=== PATIENT | female | born 1985 | race Caucasian/White ===

== ENCOUNTER 2018-10-11 02:09 | Inpatient (IN) | payer OTHER ==
[2018-10-11 02:52] LABS: APPEARANCE,URINE CLEAR; BILIRUBIN,URINE NEGATIVE (NEGATIVE); COLOR,URINE COLORLESS; GLUCOSE, URINE NEGATIVE (NEGATIVE); KETONES,URINE NEGATIVE (NEGATIVE); LEUKOCYTE ESTERASE,URINE NEGATIVE (NEGATIVE); NITRITE,URINE NEGATIVE (NEGATIVE); PROTEIN,URINE NEGATIVE (NEGATIVE); URINE SPECIFIC GRAVITY 1.002; UROBILINOGEN,URINE NEGATIVE mg/dL (<2.0)
[2018-10-11 03:09] LABS: URINE AMPHETAMINES SCREEN NEGATIVE; URINE BARBITURATES SCREEN NEGATIVE; URINE BENZODIAZEPINES SCREEN NEGATIVE; URINE COCAINE SCREEN NEGATIVE; URINE MARIJUANA (THC) SCREEN NEGATIVE; URINE METHADONE SCREEN NEGATIVE; URINE PHENCYCLIDINE SCREEN NEGATIVE
[2018-10-11] MEDS ORDERED: RINGERS SOLUTION,LACTATED 1,000 ML IV ONE (05:37)
[2018-10-11] MEDS ORDERED: RINGERS SOLUTION,LACTATED 1,000 ML IV PRN (05:37)
--- NOTE | 2018-10-11 06:34 | Admission Physical ---
Datetime Report Generated by CPN: 10/11/2018 06:34 CURRENT ADMISSION Chief Complaint: Uterine Contractions Indication for Induction: Not Applicable Admit Impression : Term, Intrauterine ; Active Labor Admit Plan: Admit to Unit; Initiate Labor Protocol ALLERGIES Medication Allergies: No Latex: No Latex Allergies OBSTETRICAL HISTORY EDC: 10/08/2018 00:00 : 5 Para: 4 Term: 4 : 0 SAB: 0 IAB: 0 Ectopic: 0 Livin Cesareans: 0 VBACs: 0 Multiple Births: 0 Gestational Diabetes: No Rh Sensitization: No Incompetent Cervix: No BIANKA: No Infertility: No ART Treatment: No Uterine Anomaly: No IUGR: No Hx Previous C/S: No Macrosomia: No Hx Loss/Stillborn: No PIH: No Hx : No Placenta Previa/Abruption: No Depression/PP Depression: No PTL/PROM: No Post Hemorrhage: No Current Procedures: Ultrasound; NST Obstetrical History Comments: G1: 2009; boy, 7# 2 oz G2: 2011; girl, _6 # G3: 2012; boy, 8# 1 oz G4: 2016; boy, 7# 11 oz G5: current SEE RECORDS Alcohol: No Marijuana : No Cocaine: No Other Illicit Drugs: No Cigarettes: Never Smoker. 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 Surgery: No Heart Disease: No Hosp/Surgery: Yes Autoimmune Disorder: No Anesthetic Complications: No Kidney Disease: No Abnormal Pap Smear: No Neuro/Epilepsy: No Psychiatric Disorders: No Other Medical Diseases: No Hepatitis/Liver Disease: No Significant Family History: No Varicosities/Phlebitis: No Trauma/Violence : No Thyroid Dysfunction: No INFECTIOUS HISTORY Gonorrhea: No Genital Herpes: No Chlamydia: No Tuberculosis: No Syphilis: No Hepatitis: No HIV/AIDS Exposure: No Rash or Viral Illness: No HPV: No PHYSICAL EXAM General: Normal HEENT: Normal Neurologic: Normal Thyroid: Deferred Heart: Normal Lungs: Normal Breast: Deferred Back: Normal Abdomen: Normal Genitourinary Exam: Normal Extremities: Normal DTRs: Normal Pelvic Type: Adequate Vital Signs: Reviewed VAGINAL EXAM Dilatation: 6 Effacement: 90 Station: -2 Contraction Comments: q 2-3 MEMBRANES Membranes: Intact FETUS A EGA: 40.3 Monitoring: External US FHR- Baseline: 125 Variability: Moderate 6-25bpm Accelerations: 15X15 Decelerations: None Presentation: Vertex Admit Comment: 33yo at 40+3ega with polyhydramnios (JONNA 27.3 and SDP greater than 8) presents with regular uterine contractions. GBS negative. Pt is now refusing and IV (including hep lock). Reviewed concerns with grand multip and polyhydramnios and increased risk of hemorrhage - pt will consider agreeing to IV. Pt desires Intermittent monitoring - reviewed risks of SROM with polyhydramnios. Closely spaced . late to care at 19wks. o/w uncomplicated. Declines epidural. Anticipate PLANS FOR LABOR AND DELIVERY Labor and Delivery: None Pain Management: Natural Feeding Preference: Breast Benefit of Breast Feed Discussed: Yes Circumcision: N/A INFORMED CONSENT Informed Consent Obtained: Vaginal Delivery; Risks, Benefits and Alternatives Discussed Signature: with User ID: [email or web address]
[2018-10-11] MEDS ORDERED: OXYTOCIN/NORMAL SALINE 0 UNIT/0 ML RTUINJ ONE (06:57)
[2018-10-11] MEDS ORDERED: LIDOCAINE 1% INJ-PF (10 MG/ML) 30 ML SDV ONE (06:57)
[2018-10-11 07:10] LABS: ABSOLUTE BASOPHILS # (AUTO) 0.2 10^3/uL (0.0-0.2); ABSOLUTE LYMPHOCYTES (AUTO) 1.8 10^3/uL (0.5-4.7); ABSOLUTE MONOCYTES (AUTO) 0.7 10^3/uL (0.1-1.4); ABSOLUTE NEUT (AUTO) 9.8 10^3/uL (1.7-8.2); BASOPHILS % (AUTO) 1.5 % (0-2); EOSINOPHILS % (AUTO) 0.2 % (0-6); HEMATOCRIT 32.7 % (36.0-47.0); HEMOGLOBIN 10.9 g/dL (12.0-15.5); LYMPHOCYTES % (AUTO) 14.2 % (13-45); MEAN CORPUSCULAR HEMOGLOBIN 24.9 pg (27.0-33.4); MEAN CORPUSCULAR HGB CONC 33.4 g/dL (32.0-36.0); MEAN CORPUSCULAR VOLUME 75 fl (80-97); MONOCYTES % (AUTO) 5.4 % (3-13); PLATELET COUNT 228 10^3/uL (150-450); RED BLOOD COUNT 4.37 10^6/uL (3.72-5.28); RED CELL DISTRIBUTION WIDTH 13.9 % (11.5-14.0); SEGMENTED NEUTROPHILS % (AUTO) 78.7 % (42-78); TOTAL CELLS COUNTED % (AUTO) 100 %; WHITE BLOOD COUNT 12.4 10^3/uL (4.0-10.5)
[2018-10-11] MEDS ORDERED: ONDANSETRON HCL INJ/PF 4 MG/2 ML SDV IV ONE (09:18)
[2018-10-11] MEDS ORDERED: ONDANSETRON HCL INJ/PF 4 MG/2 ML SDV ONE (09:18)
[2018-10-11] MEDS ORDERED: ZOLPIDEM TARTRATE 5 MG TABLET PO PRN (11:20)
[2018-10-11] MEDS ORDERED: PSEUDOEPHEDRINE HCL 30 MG TABLET PO PRN (11:20)
[2018-10-11] MEDS ORDERED: DIPH/PERTUSS(ACELL)/TETANUS VAC/PF 0.5 ML SYR (>=10YO) IM PRN (11:20)
[2018-10-11] MEDS ORDERED: NA PHOS,M-B/NA PHOS,DI-BA (ADULT) 133 ML ENEMA PR PRN (11:20)
[2018-10-11] MEDS ORDERED: BENZOCAINE/MENTHOL AEROSOL SPRAY 56 ML TOP PRN (11:20)
[2018-10-11] MEDS ORDERED: PROMETHAZINE HCL 25 MG TABLET PO PRN (11:20)
[2018-10-11] MEDS ORDERED: DIBUCAINE 1% OINTMENT 28 GM TP PRN (11:20)
[2018-10-11] MEDS ORDERED: PROMETHAZINE HCL 25 MG SUPP.RECT PR PRN (11:20)
[2018-10-11] MEDS ORDERED: PROMETHAZINE HCL INJ 25 MG/1 ML VIAL IV PRN (11:20)
[2018-10-11] MEDS ORDERED: GLYCERIN/WITCH HAZEL LEAF 1 EACH MED..PAD TP PRN (11:20)
[2018-10-11] MEDS ORDERED: DIPHENHYDRAMINE HCL 25 MG CAPSULE PO PRN (11:20)
[2018-10-11] MEDS ORDERED: OXYTOCIN/NORMAL SALINE 20 UNIT/1,000 ML RTUINJ IV PRN (11:20)
[2018-10-11] MEDS ORDERED: ACETAMINOPHEN 650 MG SUPP.RECT PR PRN (11:20)
[2018-10-11] MEDS ORDERED: ACETAMINOPHEN WITH CODEINE #3 TABLET PO PRN (11:20)
[2018-10-11] MEDS ORDERED: MAGNESIUM HYDROXIDE SUSP 30 ML UDCUP PO PRN (11:20)
[2018-10-11] MEDS ORDERED: MEASLES,MUMPS&RUBELLA VACC/PF 0.5 ML VIAL SUBCUT PRN (11:20)
[2018-10-11] MEDS ORDERED: IBUPROFEN 800 MG TABLET ONE (12:48)
--- NOTE | 2018-10-11 15:09 | Delivery Summary ---
Del Sum A-C Datetime Report Generated by CPN: 10/11/2018 15:08 DELIVERY PERSONNEL DELIVERY PERSONNEL: [id number] Delivery Doctor:: Damain García, MD MATERNAL INFORMATION Delivery Anesthesia: None Estimated Blood Loss (ml): 250 Maternal Complications: None LABOR SUMMARY EDC: 10/08/2018 00:00 No. Babies in Womb: 1 Attempted: No Labor Anesthesia: None LABOR INFORMATION Reason for Induction: Not Applicable Onset of Labor: 10/11/2018 03:00 Complete Dilatation: 10/11/2018 11:20 Group B Beta Strep: Negative Antibiotics # of Doses: 0 Antibiotics Time of Last Dose: 0 Name of Antibiotic Given: 0 Steroids Given: None Reason Steroids Not Administered: Not Applicable MEMBRANES Membranes Rupture Method: Artificial Rupture of Membranes: 10/11/2018 11:20 Length of Rupture (hr): 0.85 Amniotic Fluid Color: Clear Amniotic Fluid Amount: Large Amniotic Fluid Odor: None STAGES OF LABOR Stage 1 hr: 8 Stage 1 min: 20 Stage 2 hr: 0 Stage 2 min: 51 Stage 3 hr: 0 Stage 3 min: 3 Total Time in Labor hr: 9 Total Time in Labor min: 14 VAGINAL DELIVERY Episiotomy: None Laceration #1: Perineal Laceration Extension #1: Second Degree Laceration #2: None Laceration Extension #2: N/A Laceration #3: None Laceration Extension #3: N/A Laceration Repair: Yes Laceration Repair Note: repair with 3-0 chromic in usual fashion BABY A INFORMATION Infant Delivery Date/Time: 10/11/2018 12:11 Method of Delivery: Vaginal Born in Route : No : N/A Forceps: N/A Vacuum Extraction: N/A Shoulder Dystocia : No PRESENTATION/POSITION BABY A Presentation: Cephalic Cephalic Presentation: Vertex Vertex Position: Left Occipital Anterior Breech Presentation: N/A PLACENTA INFORMATION BABY A Placenta Delivery Time : 10/11/2018 12:14 Placenta Method of Delivery: Spontaneous Placenta Status: Delivered SCORES BABY A Heart Rate 1 min: >100 bpm Resp Effort 1 min: Good Cry Reflex Irritability 1 min: Cough or Sneeze or Pulls Away Muscle Tone 1 min: Active Motion Color 1 min: Body [place], Extremities Blue SCORE 1 MIN: 9 Heart Rate 5 min: >100 bpm Resp Effort 5 min: Good Cry Reflex Irritability 5 min: Cough or Sneeze or Pulls Away Muscle Tone 5 min: Active Motion Color 5 min: Body [place], Extremities Blue SCORE 5 MIN: 9 INFORMATION BABY A Gestational Age at Delivery: 40.3 Gestational Status: Full Term- 39- 40.6 Weeks Outcome : Liveborn Infant Condition : Stable Infant Sex: Female IDENTIFICATION BABY A Verification Date/Time: 10/11/2018 12:34 ID Band Number: [id number] Mother's Name Verified: Yes Infant RN Verifying Infant: D Constanza RN/B Magda RN Additional Verifying Personnel: H Francine RN WEIGHT/LENGTH BABY A Infant Birthweight (gm): 3530 Weight (lb): 7 Infant Weight (oz): 13 Infant Length (in): 20.75 Length (cm): 52.71 CORD INFORMATION BABY A No. Cord Vessels: 3 Nuchal Cord : N/A Cord Blood Taken: Yes-For Eval (Mom's Blood Type - or O+) Suction: None ASSESSMENT BABY A Complications: None Physical Findings at Delivery: Within Normal Limits Infant Respirations: Appears Normal Educational Adviser/ALS Called : No Infant Care By: Anupama Man RN Transferred To: Remains with Mother BABY B INFORMATION : N/A SIGNATURES Signature: with User ID: [email or web address]
[2018-10-11] MEDS: ACETAMINOPHEN WITH CODEINE #3 TABLET PO PRN (15:41)
[2018-10-11] MEDS: DOCUSATE SODIUM 100 MG CAPSULE PO SCH (18:22)
[2018-10-11] MEDS: FERROUS SULFATE 325 MG TABLET PO SCH (18:23)
[2018-10-11] MEDS: FAMOTIDINE 20 MG TABLET PO SCH (21:13)
[2018-10-11] MEDS: IBUPROFEN 800 MG TABLET PO SCH (21:13)
[2018-10-12] MEDS: ACETAMINOPHEN WITH CODEINE #3 TABLET PO PRN (01:28)
[2018-10-12] MEDS: IBUPROFEN 800 MG TABLET PO SCH ×3 (05:18→13:05)
[2018-10-12 08:28] LABS: HEMATOCRIT 30.7 % (36.0-47.0); HEMOGLOBIN 10.3 g/dL (12.0-15.5); MEAN CORPUSCULAR HEMOGLOBIN 25.2 pg (27.0-33.4); MEAN CORPUSCULAR HGB CONC 33.6 g/dL (32.0-36.0); MEAN CORPUSCULAR VOLUME 75 fl (80-97); PLATELET COUNT 181 10^3/uL (150-450); RED BLOOD COUNT 4.08 10^6/uL (3.72-5.28); RED CELL DISTRIBUTION WIDTH 13.9 % (11.5-14.0); WHITE BLOOD COUNT 8.5 10^3/uL (4.0-10.5)
[2018-10-12] MEDS: FERROUS SULFATE 325 MG TABLET PO SCH ×2 (09:17→17:25)
[2018-10-12] MEDS: FAMOTIDINE 20 MG TABLET PO SCH (09:17)
[2018-10-12] MEDS: DOCUSATE SODIUM 100 MG CAPSULE PO SCH ×2 (09:17→17:25)
[2018-10-12] MEDS ORDERED: SENNOSIDES/DOCUSATE 8.6-50 MG 1 EACH TABLET PO SCH (10:00)
[2018-10-12] MEDS ORDERED: PRENATAL VITAMIN W DHA CAPSULE PO SCH (10:00)
--- NOTE | 2018-10-12 10:39 | PDOC DISCHARGE SUMMARY ---
Final Diagnosis Discharge Date: 10/12/18 - PP Day #1, pt desires to go home this evening. Doing well, fifth child, . O+ - Final Diagnosis (1) Normal course Is this a current diagnosis for this admission?: Yes (2) Active labor at term Is this a current diagnosis for this admission?: Yes (3) Obstetrical laceration, second degree Is this a current diagnosis for this admission?: Yes (4) Polyhydramnios affecting in third trimester Is this a current diagnosis for this admission?: Yes (5) Vaginal delivery Is this a current diagnosis for this admission?: Yes Discharge Data - Discharge Medication Home Medications: Vit,Calc76/Iron/Folic [Prenatabs Rx Tablet] 1 tab PO DAILY 10/11/18 Ibuprofen [Motrin 800 mg Tablet] 800 mg PO Q8 tablet 10/12/18 Reason(s) for Admission: Onset of Labor Procedures: NST, Ultrasound Intrapartum Procedure(s): Spontaneous Vaginal Delivery - Diagnosis Test Laboratory: Temp Pulse Resp BP Pulse Ox 97.4 F 62 17 106/51 L 100 10/12/18 07:27 10/12/18 07:27 10/12/18 07:27 10/12/18 07:27 10/12/18 07:27 10/11/18 10/11/18 10/12/18 02:18 06:51 07:20 RBC 4.37 4.08 Hgb 10.9 L 10.3 L Hct 32.7 L 30.7 L Urine Opiates Screen NEGATIVE - Discharge information/Instructions Discharge Activity: Activity As Tolerated, No Lifting Over 10 Pounds, Pelvic Rest Discharge Diet: As Tolerated, Regular Disposition: HOME, SELF-CARE Follow up with: [facility] in: 4, Weeks
[2018-10-12 11:25] VITALS: BP 122/59
== END 2018-10-12 18:48 | disposition home or self-care (01) | DRG 807 ==
LOC: LC 02:09 → LR 05:37 → 2S 14:45
PROVIDERS: ADMIT Obstetrics & Gynecology; ATTEND Obstetrics & Gynecology
PROC: 10E0XZZ Delivery of Products of Conception, External Approach (ICD-10-PCS; principal; 2018-10-11)
PROC: 0KQM0ZZ Repair Perineum Muscle, Open Approach (ICD-10-PCS; 2018-10-11)
DX: O40.3XX0 Polyhydramnios, third trimester, not applicable or unspecified (principal); Z37.0 Single live birth; O48.0 Post-term pregnancy; O70.1 Second degree perineal laceration during delivery; Z3A.40 40 weeks gestation of pregnancy
CPT/HCPCS: 36415; 80307; 81005; 85025; 85027; 86592; 86850; 86900; 86901; J2405; J2590; J3490